=== PATIENT | male | born 1950 | race Caucasian/White ===

== ENCOUNTER 2018-02-15 14:00 | Emergency (ER) | payer MEDICARE ==
[2018-02-15 14:16] LABS: #Basophils 0.1 thou/uL (0.0-0.2); #Eosinphils 0.5 thou/uL (0.0-0.7); #Lymphocytes 2.2 thou/uL (1.20-3.40); #Monocytes 0.9 thou/uL (0.11-0.59); #Neutrophils 5.1 thou/uL (1.40-6.50); %Basophils 1.1 % (0.0-1.0); %Eosinophils 5.6 % (0.0-10.0); %Lymphocytes 25.2 % (21.0-51.0); %Monocytes 9.8 % (0.0-10.0); %Neutrophils 58.2 % (42.0-75.0); Mean Corpuscular HGB CONC 34.3 g/dL (32.0-36.0); Mean Corpuscular Hemoglobin 33.7 pg (27.0-31.0); Mean Corpuscular Volume 98.1 fl (80.0-94.0); Mean Platelet Volume 6.1 fL (7.4-10.4); Platelet Count 132 thou/uL (130-400); RBC Distribution Width 12.7 % (11.5-14.5); Red Blood Cell (RBC) Count 4.45 mill/uL (4.70-6.10); White Blood Cell (WBC) Count 8.8 thou/uL (4.8-10.8)
[2018-02-15 14:34] LABS: ALT (SGPT) 47 U/L (8-55); AST (SGOT) 89 U/L (5-34); Albumin 3.7 g/dL (3.4-4.8); Alkaline Phosphatase 89 U/L (40-150); Anion Gap 18 mmol/L (10-20); BUN (Urea Nitrogen) 9 mg/dL (8.4-25.7); Bilirubin, Total 1.2 mg/dL (0.2-1.2); Calc. Creatinine Clearance 0 mL/min (70-130); Calcium 8.8 mg/dL (7.8-10.44); Carbon Dioxide 20 mmol/L (23-31); Chloride 104 mmol/L (98-107); Estimated GFR-MDRD 49; Globulin 3.1 g/dL (2.4-3.5); Glucose 100 mg/dL (80-115); Potassium 3.6 mmol/L (3.5-5.1); Protein, Total 6.8 g/dL (5.8-8.1); Sodium 138 mmol/L (136-145)
[2018-02-15 14:35] LABS: CKMB 2.7 ng/mL (0-6.6); Troponin I Less than 0.010 ng/mL (< 0.028)
[2018-02-15] MEDS ORDERED: Thiamine HCl 200 MG/2 ML VIAL ONE (15:00)
[2018-02-15] MEDS ORDERED: Multivit, Adult Inj 10 ML VIAL ONE (15:01)
--- NOTE | 2018-02-15 17:27 | RAD ---
CHEST TWO VIEWS 02/15/18 PA and lateral views are submitted with no prior films available for comparison. The heart is normal in size. the lungs are clear with no sign of infiltrate or effusion. The mediasti num was unremarkable and the trachea is midline. There may have been old fractures to some of the upp er right ribs laterally. On the lateral view, there is a sclerotic density in or over one of the lower thoracic vertebra a few centimeters above the diaphragm. I cannot tell if this is an isolated sclerotic area in the vertebra due to degenerative change or if it is caused by an overlapping shadow of pathology in the lung. I c an find no such pathology on the PA film. If old chest x-rays exist, they would be very useful for co mparison. Alternatively, one could either follow this or do a CT to remove all doubt IMPRESSION: 1. No definite acute findings. 2. Rounded sclerotic area in or overlying one of the lower thoracic vertebra seen on the lateral view only. See discussion above. The preferred next step would be to obtain old films if possible. See full discussion above. Code T POS: HOME
--- NOTE | 2018-02-15 17:29 | CT ---
CT OF THE BRAIN WITHOUT CONTRAST 02/15/18 Generalized atrophy is present with mild compensatory dilatation of the ventricles. No intracranial b leeding or extra-axial hematoma was seen. There was no sign of acute stroke, mass or edema. The calvarium appears intact with no sign of fracture. There is extensive mucosal thickening in the e thmoid air cells bilaterally and perhaps a little bit in the maxillary sinuses. The mastoid air cells are clear. No air fluid level is seen in the sphenoid sinus. IMPRESSION: 1. Atrophy but no acute intracranial findings. 2. Ethmoid sinus disease. POS: HOME
== END 2018-02-15 15:33 | disposition short-term general hospital (02) ==
LOC: BURERS 14:00
DX: R55 Syncope and collapse (principal)
CPT/HCPCS: 70450; 71046; 80053; 80307; 82553; 83880; 84484; 85025; 93005; 96365; 96368; J3411

== ENCOUNTER 2022-01-16 14:44 | Outpatient (CLI) | payer MEDICARE | END 2022-01-16 14:45 | disposition home or self-care (01) | LOC: BURRAD 14:44 | PROVIDERS: ATTEND Family Medicine | DX: R05.9 Cough, unspecified (principal); R94.5 Abnormal results of liver function studies; R93.89 Abnormal findings on diagnostic imaging of other specified body structures; I10 Essential (primary) hypertension; R91.8 Other nonspecific abnormal finding of lung field | CPT/HCPCS: 71046 ==